=== PATIENT | male | born 1980 | race Caucasian/White ===

== ENCOUNTER 2021-02-10 06:43 | Day surgery (SDC) | payer BC ==
[2021-02-08 09:16] LABS: BASOPHILS % (AUTO) 0.7 % (0.0-5.0); EOSINOPHILS % (AUTO) 2.2 % (0.0-8.0); HEMATOCRIT 43.3 % (42-54); LYMPHOCYTES % (AUTO) 34.8 % (21.0-51.0); MEAN CORPUSCULAR HEMOGLOBIN 28.8 pg (27.0-33.0); MEAN CORPUSCULAR HGB CONC 33.9 g/dL (32.0-36.0); MEAN CORPUSCULAR VOLUME 84.7 fL (79-99); MONOCYTES % (AUTO) 4.9 % (3.0-13.0); PLATELET COUNT (AUTO) 280 K/uL (130-400); RED BLOOD CELL COUNT(AUTO) 5.11 MIL/uL (4.50-6.20); RED CELL DISTRIBUTION WIDTH 12.9 % (11.0-15.5)
[2021-02-08 09:26] LABS: CREATININE 1.2 mg/dL (0.5-1.5)
[2021-02-08 09:29] LABS: INR 1.08 (0.85-1.15); PROTHROMBIN TIME 11.7 SEC (9.6-11.6)
[2021-02-08 09:30] LABS: PARTIAL THROMBOPLASTIN TIME 32.8 SEC (26.3-35.5)
[2021-02-08 09:45] LABS: APPEARANCE,URINE Clear (CLEAR); BILIRUBIN,URINE Negative (NEGATIVE); COLOR,URINE Yellow (YELLOW); GLUCOSE, URINE (UA) Negative (NEGATIVE); KETONES,URINE 15 mg/dL (NEGATIVE); LEUKOCYTE ESTERASE ,URINE Negative (NEGATIVE); NITRATE,URINE Negative (NEGATIVE); OCCULT BLOOD,URINE Negative (NEGATIVE); PROTEIN,URINE Negative (NEGATIVE); UROBILINOGEN,URINE 0.2 mg/dL (0.2-1.0)
[2021-02-08 10:08] LABS: BACTERIA,URINE Rare /HPF (None Seen); RBC,URINE 0-1 /HPF (0-1); SQUAMOUS EPITHELIAL CELL,UR Rare /HPF (0-2); WBC,URINE 0-1 /HPF (0-1)
[2021-02-09 10:01] VITALS: BP 114/71
[~2021-02-10] VITALS: Ht 172.7 cm; Wt 100.2 kg
[2021-02-10] VITALS (8 sets, daily range): BP systolic 103–114; BP diastolic 62–67
[~2021-02-10 06:43] MED LIST: APIX5TAB PO; FLUT1AER IH
[2021-02-10] MEDS ORDERED: 0.9%NACL 1000ML 1,000 ML IV ONE (07:23)
[2021-02-10] MEDS ORDERED: HEPARIN 10,000 UNIT/10ML (1,000 UNIT/ML) VIAL ONE (08:54)
[2021-02-10] MEDS ORDERED: SODIUM BICARB 50MEQ 50ML VIAL 50 ML ONE (08:54)
[2021-02-10] MEDS ORDERED: BIVALIRUDIN 250 MG/VIAL IV ONE (08:54)
[2021-02-10] MEDS ORDERED: IOHEXOL-350 50ML VIAL IV ONE (08:55)
[2021-02-10] MEDS ORDERED: LIDOCAINE HCL 400MG/20ML VIAL ONE (08:55)
[2021-02-10] MEDS ORDERED: IOHEXOL 350 MG/ML 100ML INFUS..BTL IV ONE (08:55)
[2021-02-10] MEDS ORDERED: MIDAZOLAM HCL 1 MG/ML 2ML VIAL ONE (09:49)
[2021-02-10] MEDS ORDERED: FENTANYL CITRATE PF 50 MCG/1 ML 2ML VIAL ONE (09:49)
[2021-02-10] MEDS ORDERED: 0.9%NACL 1000ML 1,000 ML IV SCH (11:00)
== END 2021-02-10 15:20 | disposition home or self-care (01) ==
LOC: DAH 06:43
PROVIDERS: ATTEND Internal Medicine Cardiovascular Disease
DX: R06.00 Dyspnea, unspecified (principal); R07.89 Other chest pain; R61 Generalized hyperhidrosis; Z79.01 Long term (current) use of anticoagulants; Z86.718 Personal history of other venous thrombosis and embolism; Z83.3 Family history of diabetes mellitus; Z79.899 Other long term (current) drug therapy; Z98.890 Other specified postprocedural states
CPT/HCPCS: 36415; 71045; 80048; 81001; 85025; 85610; 85730; 93005; 93460; A4215; A4216; A4221; A4222; A4223 ×3; A4606; A4663; C1760; C1769; C1894 ×3; J1644; J2250; J3010; J3490 ×2; J7030; Q9965; Q9967 ×2; 99156; 99157; J0583

== ENCOUNTER 2021-05-11 19:17 | Emergency (ER) | payer BC ==
[~2021-05-11] VITALS: Ht 170.2 cm; Wt 97.5 kg
[2021-05-11 19:51] LABS: BASOPHILS % (AUTO) 0.9 % (0.0-5.0); EOSINOPHILS % (AUTO) 2.8 % (0.0-8.0); HEMATOCRIT 45.9 % (42-54); LYMPHOCYTES % (AUTO) 26.4 % (21.0-51.0); MEAN CORPUSCULAR HEMOGLOBIN 28.2 pg (27.0-33.0); MEAN CORPUSCULAR HGB CONC 32.7 g/dL (32.0-36.0); MEAN CORPUSCULAR VOLUME 86.3 fL (79-99); MONOCYTES % (AUTO) 9.9 % (3.0-13.0); NEUTROPHILS % (AUTO) 59.7 % (40.0-77.0); PLATELET COUNT (AUTO) 232 K/uL (130-400); RED BLOOD CELL COUNT(AUTO) 5.32 MIL/uL (4.50-6.20); RED CELL DISTRIBUTION WIDTH 12.8 % (11.0-15.5); WHITE BLOOD COUNT (AUTO) 6.9 K/uL (4.8-10.8)
[2021-05-11 20:01] LABS: CREATININE 1.2 mg/dL (0.5-1.5); POTASSIUM 3.8 mmol/L (3.5-5.1)
[2021-05-11 20:06] LABS: ALBUMIN 4.1 g/dL (3.5-5.0); BILIRUBIN,TOTAL 0.9 mg/dL (0.2-1.0); TOTAL PROTEIN, SERUM 7.9 g/dL (6.0-8.3)
[2021-05-11 22:27] VITALS: BP 131/82
== END 2021-05-11 22:29 | disposition home or self-care (01) ==
LOC: EDH 19:17
DX: R07.89 Other chest pain (principal); Z79.01 Long term (current) use of anticoagulants; Z79.51 Long term (current) use of inhaled steroids; Z86.711 Personal history of pulmonary embolism; Z86.718 Personal history of other venous thrombosis and embolism; Z90.49 Acquired absence of other specified parts of digestive tract; Z88.2 Allergy status to sulfonamides
CPT/HCPCS: 36415; 71045; 80053; 84484; 85025; 85378; 93005

== ENCOUNTER → 2021-05-19 | Outpatient (CLI) | payer BC ==
[~2021-05-19] MED LIST changes: +IOHEXOL-350 75 ML VIAL IV ONE
== END | disposition home or self-care (01) ==
LOC: RAH 07:40
PROVIDERS: ATTEND Family Medicine
DX: J84.10 Pulmonary fibrosis, unspecified (principal); I51.7 Cardiomegaly; I82.491 Acute embolism and thrombosis of other specified deep vein of right lower extremity; M47.815 Spondylosis without myelopathy or radiculopathy, thoracolumbar region
CPT/HCPCS: 71275; Q9967

== ENCOUNTER → 2021-12-01 | Outpatient (CLI) | payer BC ==
[~2021-12-01] MED LIST changes: -IOHEXOL-350 75 ML VIAL IV ONE
== END | disposition home or self-care (01) ==
LOC: RAH 15:00
PROVIDERS: ATTEND Internal Medicine Critical Care Medicine
DX: J84.112 Idiopathic pulmonary fibrosis (principal); M47.815 Spondylosis without myelopathy or radiculopathy, thoracolumbar region
CPT/HCPCS: 71250

== ENCOUNTER → 2024-01-05 | Outpatient (CLI) | payer BC ==
[~2024-01-05] MED LIST changes: -APIX5TAB PO; -FLUT1AER IH; +IOHEXOL-350 75 ML VIAL IV ONE; +IRON PO
== END | disposition home or self-care (01) ==
LOC: RAH 07:37
PROVIDERS: ATTEND Student in an Organized Health Care Education/Training Program
DX: N20.0 Calculus of kidney (principal)
CPT/HCPCS: 74174; Q9967

== ENCOUNTER 2024-05-28 12:49 | Emergency (ER) | payer BC ==
[~2024-05-28] VITALS: Ht 170.2 cm; Wt 97.1 kg
[~2024-05-28 12:49] MED LIST changes: -IOHEXOL-350 75 ML VIAL IV ONE
--- NOTE | 2024-05-28 13:09 | ERN ---
ED Note History of Present Illness Stated Complaint: LT GROIN AND LT CALF PAIN Chief Complaint: Lower Extremity Pain/Injury Time Seen by MD: 12:57 Dictation: PATIENT IS A 43-YEAR-OLD MALE COMING IN TODAY WITH LEFT GROIN AND LEG PAIN HE HAS HAD FOR SEVERAL DAYS. NO FEVER NO CHILLS NO SHORTNESS A BREATH NO CHEST PAIN. HE STATES HE HAS A HISTORY OF DVTS AND SEES DR. COY CHAIDEZ. HE IS CURRENTLY ON PRADAXA 150 MG B.I.D., [id number] MG Q.DAY, BABY [id number] MG DAILY. STATES HE WAS TOLD TO BE HOWEVER HAD LEG PAIN TO COME BACK TO THE EMERGENCY ROOM FOR EVALUATION. LEFT LEG IS WARM TO TOUCH DISTAL NEUROVASCULAR CMS INTACT Allergies: Coded Allergies: Sulfa(Sulfonamide Antibiotics) (Verified Allergy, 01/01/13) Home Meds Active Scripts Acetaminophen with Codeine (Acetaminophen-Cod #3 Tablet) 300 Mg-30 Mg Tablet, 1 TAB PO Q4H PRN for MODERATE TO SEVERE PAIN, #30 TAB 0 Refills Prov:FLORIAN VASQUEZ TROUBLE LOCATER 05/28/24 Reported Medications [Iron 150 Mg Daily] No Conflict Check, 1 TAB PO DAILY 12/07/23 Past Medical History Past Medical History: DVT, Kidney Stone Additional Past Medical Hx: DVT Surgical History: Appendectomy, Other Surgical History Other: KIDNEY STONES RN Note Reviewed/Agreed w/PFSH: Yes Review of System Dictation CONSTITUTIONAL: NEGATIVE EXCEPT FOR HPI HEAD/FACE: NEGATIVE EXCEPT FOR HPI EENT: NEGATIVE EXCEPT FOR HPI RESPIRATORY: NEGATIVE EXCEPT FOR HPI GASTROINTESTINAL/ABDOMINAL: NEGATIVE EXCEPT FOR HPI GENITOURINARY: NEGATIVE EXCEPT FOR HPI MUSCULOSKELETAL: NEGATIVE EXCEPT FOR HPI LEFT LEG AND GROIN PAIN INTEGUMENTARY: NEGATIVE EXCEPT FOR HPI NEUROLOGICAL/PSYCH: NEGATIVE EXCEPT FOR HPI HEMATOLOGIC/LYMPHATIC: NEGATIVE EXCEPT FOR HPI ALL SYSTEMS NEGATIVE, EXCEPT NOTED ABOVE. 13 POINT REVIEW OF SYSTEMS ASSESSED AND ALL NEGATIVE EXCEPT FOR ABOVE. Initial Vital Sign VS Vital Signs Date Time Temp Pulse Resp B/P (MAP) Pulse Ox O2 Delivery O2 Flow Rate FiO2 05/28/24 12:51 98.2 63 20 114/75 99 0 05/28/24 14:01 Room Air* 21 Physical Exam Dictation VITAL SIGNS REVIEWED GENERAL APPEARANCE: ALERT, ORIENTED X 3, NO ACUTE DISTRESS, WELL DEVELOPED, NOURISHED. HEAD AND FACE: NON-TRAUMATIC. EYES: PERRL, PINK CONJUNCTIVAS, EYELID NO TRAUMA, ANTERIOR CHAMBER WITH ARCUS SENILIS. EARS: PINNAS INTACT AND NO SIGNS OF TRAUMA OR ERYTHEMA EAR CANALS CLEAR AND NO DISCHARGE TM NO ERYTHEMA NOSE: NO DISCHARGE, NO BLEEDING. OROPHARYNX: MOUTH NORMAL, TONGUE PINK, PHARYNX CLEAR,NO ERYTHEMA, TONSILS NO EXUDATES, NO ABSCESSES NOTED, MUCOUS MEMBRANE MOIST NECK: SUPPLE, NON-TENDER, NO THYROMEGALY, NO MASSES, NO JVD, NO BRUITS BREAST:DEFERRED CHEST:NO TENDERNESS, NO CREPITUS, NO PARADOXICAL MOVEMENT, NO RETRACTIONS LUNGS:CLEAR, WELL-VENTILATED, SYMMETRIC, NO RALES, NO WHEEZING, NO RHONCHI, NO STRIDOR, GOOD BREATH SOUNDS BILATERALLY HEART: REGULAR RATE, REGULAR RHYTHM, NO MURMUR, NO GALLOPS VASCULAR: NO PERIPHERAL EDEMA, ABDOMEN: SOFT, POSITIVE BOWEL SOUNDS, NONDISTENDED, NO GUARDING, NONTENDER, NO REBOUND, NO MASSES NO HEPATOMEGALY, NO SPLENOMEGALY, NO MORFIN'S SIGN, NO HERNIAS. RECTAL: DEFERRED GENITAL: DEFERRED NEUROLOGICAL: NORMAL SPEECH, MOTOR FUNCTION INTACT, SENSORY FUNCTION INTACT MUSCULOSKELETAL: NECK NONTENDER, FULL RANGE OF MOTION, BACK NONTENDER, FULL RANGE OF MOTION, EXTREMITIES: NONTENDER, FULL RANGE OF MOTION NONTENDER, DISTAL NEUROVASCULAR CMS INTACT. 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 LYMPHATIC: DEFERRED Results (Laboratory/Radiology) Laboratory/Radiology Laboratory Tests Test 05/28/24 13:21 White Blood Count 5.9 K/uL (4.8-10.8) Red Blood Count 4.62 MIL/uL (4.50-6.20) Hemoglobin 13.8 g/dL (14.0-18.0) L Hematocrit 41.1 % (42-54) L Mean Corpuscular Volume 89.0 fL (79-99) Mean Corpuscular Hemoglobin 29.9 pg (27.0-33.0) Mean Corpuscular Hemoglobin Concent 33.6 g/dL (32.0-36.0) Red Cell Distribution Width 13.4 % (11.0-15.5) Platelet Count 240 K/uL (130-400) Mean Platelet Volume 9.9 fL (7.5-10.5) Immature Granulocyte % (Auto) 0.2 % (0-1) Neutrophils (%) (Auto) 55.5 % (40.0-77.0) Lymphocytes (%) (Auto) 35.9 % (21.0-51.0) Monocytes (%) (Auto) 5.1 % (3.0-13.0) Eosinophils (%) (Auto) 2.6 % (0.0-8.0) Basophils (%) (Auto) 0.7 % (0.0-5.0) Neutrophils # (Auto) 3.3 K/uL (1.8-7.7) Lymphocytes # (Auto) 2.1 K/uL (1.0-4.8) Monocytes # (Auto) 0.3 K/uL (0.1-1.0) Eosinophils # (Auto) 0.15 K/uL (0.00-0.70) Basophils # (Auto) 0.04 K/uL (0.00-0.20) Absolute Immature Granulocyte (auto 0.01 K/uL (0-1) Nucleated Red Blood Cells 0.0 % (0.0-0.19) Prothrombin Time 11.1 SEC (9.6-11.6) Prothromb Time International Ratio 1.05 (0.85-1.15) Activated Partial Thromboplast Time 30.7 SEC (26.3-35.5) Sodium Level 142 mmol/L (136-145) Potassium Level 4.0 mmol/L (3.5-5.1) Chloride Level 105 mmol/L (101-111) Carbon Dioxide Level 30 mmol/L (21-32) Blood Urea Nitrogen 12 mg/dL (7-18) Creatinine 0.9 mg/dL (0.5-1.3) Glomerular Filtration Rate Calc 109 mL/min (>90) Random Glucose 84 mg/dL (70-105) Total Calcium 8.8 mg/dL (8.5-10.1) SERVICE 1305 REASON: LEFT LEG AND GROIN PAIN. HISTORY OF DVT ORDERING PHYSICIAN: FLORIAN VASQUEZ NP PROCEDURE: VENOUS UNI - US VENOUS DOPPLER UNILATERAL Exam Type: US VENOUS DOPPLER UNILATERAL Clinical Information: LEFT LEG AND GROIN PAIN. HISTORY OF DVT Comparison: None Findings: Partial nonocclusive thrombosis, echogenic, including the superficial femoral vein is seen, probably chronic. The rest of the venous structures evaluated shows no evidence of thrombosis. IMPRESSION: Thrombus as noted. Labs Reviewed?: Yes ED Course ED Course Orders Procedure Category Date Status Time Pt And Ptt LAB 05/28/24 Complete 13:05 Us Venous Doppler US 05/28/24 Resulted Unilateral 13:05 Cbc With Differential LAB 05/28/24 Complete 13:05 Basic Metabolic Panel LAB 05/28/24 Complete 13:05 Morphine 4mg Syg PHA 05/28/24 Complete (Morphine 4mg Syg) 15:30 Ondansetron 4mg Inj PHA 05/28/24 Complete (Zofran 4mg Inj) 15:30 Current Medications Medications (Trade) Dose Ordered Sig/García Route PRN Reason Start Time Stop Time Status Last Admin Dose Admin Morphine Sulfate (morPHINE 4MG SYG) 4 mg ONCE ONCE IM 05/28/24 15:30 05/28/24 15:31 DC Ondansetron HCl (zoFRAN 4MG INJ) 4 mg ONCE ONCE IVP 05/28/24 15:30 05/28/24 15:31 DC Vital Signs Date Time Temp Pulse Resp B/P (MAP) Pulse Ox O2 Delivery O2 Flow Rate FiO2 05/28/24 15:41 98.1 64 19 128/73 96 Room Air* 0 21 05/28/24 14:01 98.2 63 20 114/75 99 Room Air* 0 21 05/28/24 12:51 98.2 63 20 114/75 99 0 1440/PAGED DR. CHAIDEZ AND NO ANSWER. WE WILL FOLLOW UP WITH DR. BOWMAN WHO IS COVERING FOR CARDIOLOGY AND DR. [facility]. SPOKE WITH DORETHA AND SHE WAS SPEAKING WITH DR. BOWMAN HE SAID AFTER REVIEWING FILMS AND LABS OKAY TO SEND PATIENT HOME. 1500/SPOKE WITH PATIENT REGARDING DISCHARGE INSTRUCTIONS AND THEN HE SAYS I WAS NOT TELLING YOU THE TRUTH THAT I WAS HERE BELIEVING I WAS GOING TO BE ADMITTED TO THE HOSPITAL AND DR. CHAIDEZ WAS GOING TO DO THE SURGERY. I ASKED HIM WHAT SURGERY AND HE SAID HE HAS BEEN TOLD HE MIGHT HAVE AN ANGIOPLASTY WITH [facility]. I CALLED DR. CHAIDEZ DIRECTLY AND SPOKE WITH HIM REVIEWED THE FILMS AND THE LABS HE SA[place] EMERGENCY AT THIS TIME. HE SAID TO MEDICATE THE PATIENT FOR PAIN DISCHARGE HIM HOME WITH A HE WOULD CONTINUE WITH THE ANTICIPATED HOSPITALIZATION AND SURGERY LATER IN MAY. SHARED THIS WITH THE PATIENT AND HE AGREED. NEUROVASCULAR CMS INTACT TO LEFT LEG 1457/SPOKE WITH PATIENT AFTER MY DISCUSSION WITH DR. BOWMAN. Medical Decision Making MDM MEDICAL DISCHARGE MAKING BASED ON BASIC LABS AND ULTRASOUND LEFT LEG. PATIENT HAS A SUPERFICIAL FEMORAL VEIN PROBABLE CHRONIC. SPOKE WITH DR. CHAIDEZ AND JONATHANAY TO DISCHARGED HOME TO ANTICIPATE THE ANGIOPLASTY LATER IN MONTH. WE WILL SEND PATIENT HOME WITH MEDICATIONS FOR PAIN. DX & DISP Disposition: Discharge Departure Impression: Primary Impression: Superficial thrombosis of left lower extremity Condition: Stable Scripts Acetaminophen with Codeine (Acetaminophen-Cod #3 Tablet) 300 Mg-30 Mg Tablet 1 TAB PO Q4H PRN for MODERATE TO SEVERE PAIN, #30 TAB 0 Refills Prov: FLORIAN VASQUEZ TROUBLE LOCATER 05/28/24 Additional Instructions: Follow-up with primary care provider in 1 to 2 days. Take medications as directed here in the emergency room. Okay to continue home medications unless otherwise discussed during your visit in the emergency room today. Return to your nearest emergency room if symptoms worsen or if there is no improvement. Call 911 if you need immediate assistance. Take Tylenol or Motrin [id number] as needed and if no contraindications are present. Increase oral hydration. A wound culture or urine culture was ordered here in the emergency room department please follow-up with primary care provider and advise them to get repeat ports from our facility. If you had any Shade wrap/splints that were applied here, please do not remove them until you see your primary care or specialty. Continue all medications and treatments from Dr. Coy chaidez. Follow up with him in the next several days as needed. Referrals: CALISTA LEIVA MD (PCP) Time of Disposition: 15:07 I have reviewed the case, and I agree with, Diagnosis and Plan FLORIAN VASQUEZ NP May 28, 2024 13:09 DEONDRE JOHNSON DO May 28, 2024 18:04
[2024-05-28 13:26] LABS: BASOPHILS # (AUTO) 0.04 K/uL (0.00-0.20); BASOPHILS % (AUTO) 0.7 % (0.0-5.0); EOSINOPHILS # (AUTO) 0.15 K/uL (0.00-0.70); EOSINOPHILS % (AUTO) 2.6 % (0.0-8.0); HEMATOCRIT 41.1 % (42-54); IMMATURE GRANULOCYTE ABSOLUTE 0.01 K/uL (0-1); LYMPHOCYTES # (AUTO) 2.1 K/uL (1.0-4.8); LYMPHOCYTES % (AUTO) 35.9 % (21.0-51.0); MEAN CORPUSCULAR HEMOGLOBIN 29.9 pg (27.0-33.0); MEAN CORPUSCULAR HGB CONC 33.6 g/dL (32.0-36.0); MONOCYTES # (AUTO) 0.3 K/uL (0.1-1.0); MONOCYTES % (AUTO) 5.1 % (3.0-13.0); NEUTROPHILS # (AUTO) 3.3 K/uL (1.8-7.7); NEUTROPHILS % (AUTO) 55.5 % (40.0-77.0); PLATELET COUNT (AUTO) 240 K/uL (130-400); RED BLOOD CELL COUNT(AUTO) 4.62 MIL/uL (4.50-6.20); RED CELL DISTRIBUTION WIDTH 13.4 % (11.0-15.5); WHITE BLOOD COUNT (AUTO) 5.9 K/uL (4.8-10.8)
[2024-05-28 13:38] LABS: INR 1.05 (0.85-1.15); PROTHROMBIN TIME 11.1 SEC (9.6-11.6)
[2024-05-28 13:39] LABS: CREATININE 0.9 mg/dL (0.5-1.3); PARTIAL THROMBOPLASTIN TIME 30.7 SEC (26.3-35.5)
--- NOTE | 2024-05-28 14:08 | HMCIMG ---
Exam Type: US VENOUS DOPPLER UNILATERAL Clinical Information: LEFT LEG AND GROIN PAIN. HISTORY OF DVT Comparison: None Findings: Partial nonocclusive thrombosis, echogenic, including the superficial femoral vein is seen, probably chronic. The rest of the venous structures evaluated shows no evidence of thrombosis. IMPRESSION: Thrombus as noted.
[2024-05-28] MEDS ORDERED: ACET-2079 PO (15:09)
[2024-05-28 15:41] VITALS: BP 128/73; PULSE 64; RESP 19; TEMP 98.1; O2SAT 96
[2024-05-28] MEDS: ondanSETRON 4MG INJ IVP ONE (15:52)
[2024-05-28] MEDS: morPHINE 4 MG SYG IM ONE (15:52)
== END 2024-05-28 16:01 | disposition home or self-care (01) ==
LOC: EDH 12:49
DX: I82.812 Embolism and thrombosis of superficial veins of left lower extremity (principal); Z88.2 Allergy status to sulfonamides; Z90.49 Acquired absence of other specified parts of digestive tract; Z86.718 Personal history of other venous thrombosis and embolism
CPT/HCPCS: 36415; 80048; 85025; 85610; 85730; 93971; 99284

== ENCOUNTER → 2024-06-12 | Outpatient (CLI) | payer BC ==
[~2024-06-12] VITALS: Ht 170.2 cm; Wt 97.7 kg
[~2024-06-12] MED LIST changes: +0.9%NACL 1000ML 1,000 ML IV SCH; +ACET-2079 PO; +AEC81 PO; +CLOP75TA32 PO; +DABI150C PO
[2024-06-12 09:15] VITALS: BP 125/62; PULSE 72; RESP 18; TEMP 97.7
[2024-06-12 09:16] LABS: BASOPHILS # (AUTO) 0.07 K/uL (0.00-0.20); BASOPHILS % (AUTO) 1.1 % (0.0-5.0); EOSINOPHILS # (AUTO) 0.21 K/uL (0.00-0.70); EOSINOPHILS % (AUTO) 3.3 % (0.0-8.0); HEMATOCRIT 45.1 % (42-54); IMMATURE GRANULOCYTE ABSOLUTE 0.02 K/uL (0-1); LYMPHOCYTES % (AUTO) 31.3 % (21.0-51.0); MEAN CORPUSCULAR HEMOGLOBIN 29.9 pg (27.0-33.0); MEAN CORPUSCULAR HGB CONC 33.7 g/dL (32.0-36.0); MEAN CORPUSCULAR VOLUME 88.8 fL (79-99); MONOCYTES # (AUTO) 0.4 K/uL (0.1-1.0); MONOCYTES % (AUTO) 6.5 % (3.0-13.0); NEUTROPHILS # (AUTO) 3.6 K/uL (1.8-7.7); NEUTROPHILS % (AUTO) 57.5 % (40.0-77.0); PLATELET COUNT (AUTO) 283 K/uL (130-400); RED BLOOD CELL COUNT(AUTO) 5.08 MIL/uL (4.50-6.20); RED CELL DISTRIBUTION WIDTH 13.4 % (11.0-15.5); WHITE BLOOD COUNT (AUTO) 6.3 K/uL (4.8-10.8)
[2024-06-12 09:17] LABS: APPEARANCE,URINE CLOUDY (CLEAR); BILIRUBIN,URINE NEGATIVE (NEGATIVE); COLOR,URINE LIGHT-YELLOW (YELLOW); GLUCOSE, URINE (UA) NEGATIVE (NEGATIVE); KETONES,URINE NEGATIVE (NEGATIVE); LEUKOCYTE ESTERASE ,URINE NEGATIVE Leu/uL (NEGATIVE); NITRATE,URINE NEGATIVE (NEGATIVE); OCCULT BLOOD,URINE NEGATIVE (NEGATIVE); PROTEIN,URINE NEGATIVE (NEGATIVE); UROBILINOGEN,URINE 0.2 mg/dL (0.2-1.0)
[2024-06-12 09:25] LABS: INR 1.03 (0.85-1.15); PROTHROMBIN TIME 10.9 SEC (9.6-11.6)
[2024-06-12 09:27] LABS: PARTIAL THROMBOPLASTIN TIME 28.4 SEC (26.3-35.5)
[2024-06-12 09:38] LABS: ADD UA MICROSCOPIC YES
[2024-06-12 09:45] LABS: SQUAMOUS EPITHELIAL CELL,UR RARE /HPF (0-2)
[2024-06-12 10:04] LABS: B-TYPE NATRIURETIC PEPTIDE < 5 pg/mL (0-100)
[2024-06-14 08:00] VITALS: BP 129/73; PULSE 80; RESP 16; TEMP 99
--- NOTE | 2024-06-14 10:07 | NUR ---
to talk with pt and family will be dc home procedure cancelled for today due to weather problems today
== END ==
LOC: EDSTATUS 08:00 → DAH 08:21
PROVIDERS: ATTEND Student in an Organized Health Care Education/Training Program
DX: I87.1 Compression of vein (principal); Z53.8 Procedure and treatment not carried out for other reasons; R07.2 Precordial pain; Z79.82 Long term (current) use of aspirin; Z79.01 Long term (current) use of anticoagulants; Z83.3 Family history of diabetes mellitus; Z79.899 Other long term (current) drug therapy
CPT/HCPCS: 36415; 80048; 81001; 83880; 85025; 85610; 85730